=== PATIENT | female | born 1955 | race Caucasian/White ===

== ENCOUNTER 2016-11-13 08:30 | Day surgery (SDC) | payer BC ==
[2016-11-09 12:07] LABS: HEMATOCRIT 35.7 % (36.0-48.0); HEMOGLOBIN 11.2 g/dL (12.0-16.0)
[2016-11-09 12:17] LABS: BUN (BLOOD UREA NITROGEN) 8 MG/DL (6-23); CHLORIDE, SERUM 106 MMOL/L (96-112); CO2 (CARBON DIOXIDE) 27 MMOL/L (24-34); CREATININE 0.72 MG/DL (0.55-1.02); GFR AFRICAN AMERICAN 104 ML/MIN (>=60); GFR NON AFRICAN AMERICAN 90 ML/MIN (>=60); GLUCOSE, SERUM 99 MG/DL (60-99); POTASSIUM, SERUM 4.2 MMOL/L (3.5-5.3); SODIUM, SERUM 143 MMOL/L (135-148)
--- NOTE | ~2016-11-13 | OP ---
Record Of Operation [facility] [address] [place]. [address] NAME: SRUTHI ONTIVEROS : 53 STATUS : [facility]#: [id number] AGE: 61 ADM/REG DATE : 11/13/16 MR#: [id number] REPORT SERV DATE: 11/16/16 DICTATED BY: RODOLFO ORELLANA DATE: 11/13/16 REPORT STATUS : Draft TRANSCRIBED BY: MODL DATE: 11/13/16 DATE OF PROCEDURE: 11/13/2016 PREOPERATIVE DIAGNOSIS: Right submandibular chronic sialoadenitis. POSTOP DIAGNOSIS: Right submandibular chronic sialoadenitis. PROCEDURE: Right submandibular gland excision. SURGEON: Rodolfo Orellana M.D. ANESTHESIA: General. COMPLICATIONS: None. COUNTS: All counts correct following the procedure. ESTIMATED BLOOD LOSS: 10 mL. PREOPERATIVE INFORMED CONSENT: We discussed the risks and benefits of surgery including, but not limited to bleeding, infection, possible cranial nerve injury resulting in temporary or permanent deficits, possible postoperative fistula, and consent is on the chart. PROCEDURE IN DETAIL: The patient was brought to the operative suite. Placed on the operative table in a supine position. General endotracheal anesthesia was initiated without incident. The right neck was cleaned and prepped in the usual sterile fashion. Following this, curvilinear incision was marked out two fingerbreadths below the lower border of the mandible on the right and injected with 5 mL 1% lidocaine and 1:100,000 epinephrine for hemostasis. A 15 blade scalpel was used to make an incision down the underlying subcutaneous tissues down through the platysmal layer. A short platysmal flap was raised down the inferior aspect of the submandibular gland and dissecting on the capsule of the submandibular gland taking care to avoid injury to the marginal mandibular nerve was performed. The feeding vessels from the facial artery and facial vein were carefully dissected out and divided using the Harmonic scalpel. Then dissecting anteriorly, the mylohyoid muscle was skeletonized using the Harmonic scalpel and bipolar cautery and the mylohyoid muscle was retracted anteriorly exposing the floor of the submandibular triangle identifying the lingual nerve, which was identified and preserved, dissecting the sublingual ganglion, was dissected out and divided using the Harmonic scalpel. The submandibular duct was dissected out and doubly clamped with hemostats and divided, and the gland was removed and sent for permanent pathology. The submandibular duct was oversewn using 2-0 silk suture. Wound was copiously irrigated with sterile saline and closed in layered fashion using 4-0 Vicryl and 4-0 Prolene suture followed by benzoin, Steri-Strips, Telfa, and Tegaderm dressing. Record Of Operation [facility] [address] [place]. [address] NAME: SRUTHI ONTIVEROS : 53 STATUS : [facility]#: [id number] AGE: 61 ADM/REG DATE : 11/13/16 MR#: [id number] REPORT SERV DATE: 11/16/16 DICTATED BY: RODOLFO ORELLANA DATE: 11/13/16 REPORT STATUS : Draft TRANSCRIBED BY: RAKESH DATE: 11/13/16 YASIMNE/RAKESH Rodolfo Orellana M.D. / [id number] CC: Belkis Almanzar NP CRYSTAL HANCOCK, FNP
[~2016-11-13 08:30] MED LIST: BEN25; BEN25 PO; C5 PO; ESTRODOL; FLEX PO; IRON SUPPLEMENT; KLONO1 PO; MSCONTIN PO; MULTIVITAMI1 PO; NORV5 PO; OXYCOD5CAP PO; PERCOCET1 TA4 PO; PR25 PO; PREV30 PO; PROZAC PO; RESTORIL30 MG PO; TRILEPTAL600 MG PO; V2 PO; XARELTO20 MG PO; ZANTAC150 MG; ZESTRIL10 MG PO; [UNRECOGNIZED DRUG - OTHER]
== END 2016-11-13 23:59 | disposition home or self-care (01) ==
LOC: MSC 08:30
PROVIDERS: Otolaryngology
PROC: 0CBG0ZZ Excision of Right Submaxillary Gland, Open Approach (ICD-10-PCS; principal; 2016-11-13 09:30)
DX: K11.23 Chronic sialoadenitis (principal)
CPT/HCPCS: 80048; 85014; 85018; 88307; 93005; A9270-GY; J0690; J2250; J2405; J2710; J3010